=== PATIENT | male | born 1965 | race African-American/Black ===

== ENCOUNTER 2024-03-31 13:00 | Inpatient (IN) | payer OTHER ==
[2024-03-31 13:24] VITALS: BMI 20.9
[2024-03-31] MEDS ORDERED: NICOTINE POLACRILEX 2 MG GUM BUC PRN (14:02)
[2024-03-31] MEDS ORDERED: POLYETHYLENE GLYCOL (HEALTHYLAX) 3350 17 GM PACKET PO PRN (14:02)
[2024-03-31] MEDS ORDERED: MAG HYDROX/AL HYDROX/SIMETH 30 ML UNIT-DOSE CUP PO PRN (14:02)
[2024-03-31] MEDS ORDERED: IBUPROFEN 400 MG TABLET (FP) PO PRN (14:02)
[2024-03-31] MEDS ORDERED: IBUPROFEN 600 MG TABLET (FP) PO PRN (14:02)
[2024-03-31] MEDS ORDERED: BENZONATATE 200 MG CAPSULE PO PRN (14:02)
[2024-03-31] MEDS ORDERED: hydrOXYzine PAMOATE 25 MG CAPSULE (FP) PO PRN (14:02)
[2024-03-31] MEDS ORDERED: NALOXONE (NARCAN) HCL 4 MG/0.1 ML SPRAY NS PRN (14:02)
[2024-03-31] MEDS ORDERED: DICYCLOMINE HCL 10 MG CAPSULE PO PRN (14:02)
[2024-03-31] MEDS ORDERED: ONDANSETRON *ODT* 4 MG TABLET SL PRN (14:02)
[2024-03-31] MEDS ORDERED: MAGNESIUM HYDROX 2400MG/30ML ORAL SUSPENSION 30 ML CUP PO PRN (14:02)
[2024-03-31] MEDS ORDERED: BISMUTH SUBSALICYLATE 524 MG/30 ML PO PRN (14:02)
[2024-03-31] MEDS ORDERED: BENZOCAINE/MENTHOL (CHLORASEPTIC ) LOZENGE MM PRN (14:02)
[2024-03-31] MEDS ORDERED: LOPERAMIDE HCL 2 MG CAPSULE PO PRN (14:02)
[2024-03-31] MEDS ORDERED: ACETAMINOPHEN 325 MG TABLET (FP) PO PRN (14:02)
[2024-03-31] MEDS ORDERED: NALOXONE HCL 0.4 MG/ML VIAL IM PRN (14:02)
[2024-03-31] MEDS ORDERED: PRENATAL VITAMINS W/ FOLIC ACID TABLET (FP) PO ONE (15:04)
[2024-03-31] MEDS ORDERED: NICOTINE 14 MG/24 HOURS TOPICAL PATCH TD ONE (15:04)
[2024-03-31] MEDS: NICOTINE 14 MG/24 HOURS TOPICAL PATCH TD SCH (15:11)
[2024-03-31] MEDS: PRENATAL VITAMINS W/ FOLIC ACID TABLET (FP) PO SCH (15:11)
[2024-03-31] MEDS: ACAMPROSATE CALCIUM 333 MG TABLET.DR PO SCH (15:17)
[2024-03-31] MEDS ORDERED: ALBUTEROL SO4 HFA INHALER IH ONE (16:15)
[2024-03-31] MEDS: ALBUTEROL SO4 HFA INHALER IH PRN (16:16)
[2024-03-31] MEDS: diazePAM 5 MG TABLET PO SCH (16:37)
[2024-03-31] MEDS: THIAMINE 100 MG TABLET PO SCH (22:11)
[2024-03-31] MEDS: MELATONIN 5 MG TABLETS PO SCH (22:11)
[2024-04-01] MEDS ORDERED: INSULIN ASPART SLIDING SCALE (NOVOLOG) 1 VIAL SQ ONE ×2 (03:20→06:23)
[2024-04-01] MEDS ORDERED: ALBUTEROL SO4 HFA INHALER IH PRN (07:09)
[2024-04-01] MEDS: ATORVASTATIN CA 40 MG TABLET (FP) PO SCH (10:06)
[2024-04-01] MEDS: MONTELUKAST NA 10 MG TABLET PO SCH (10:06)
[2024-04-01] MEDS: LOSARTAN POTASSIUM 50 MG TABLET PO SCH (10:06)
[2024-04-01] MEDS: ASPIRIN COATED 81 MG TABLET.EC PO SCH (10:06)
[2024-04-01 11:55] LABS: HEMATOCRIT 41.1 % (35.4-49); MCH 31.8 pg (25.7-33.7); MCHC 34.1 g/dl (32.0-35.9); MEAN CELL VOLUME 93.4 fl (80-96); MEAN PLT VOLUME 10.2 fl (7.5-11.1); PLATELET COUNT 129 10^3/uL (134-434); RDW 14.8 % (11.9-15.9); WHITE BLOOD COUNT 5.8 K/mm3 (4.0-10.0)
[2024-04-01 12:12] LABS: POTASSIUM 3.3 mmol/L (3.5-5.1)
[2024-04-01 12:35] LABS: ALBUMIN 3.4 g/dl (3.4-5.0)
[2024-04-01 12:36] LABS: BLOOD UREA NITROGEN 7.9 mg/dL (7-18); TOT PROT 6.9 g/dl (6.4-8.2)
[2024-04-01 12:37] LABS: BILIRUBIN,TOTAL 0.9 mg/dL (0.2-1); CREATININE 0.9 mg/dL (0.55-1.3)
[2024-04-01] MEDS: ACAMPROSATE CALCIUM 333 MG TABLET.DR PO SCH (14:26)
[2024-04-01] MEDS ORDERED: POTASSIUM CHLORIDE ORAL LIQUID 20 MEQ/15 ML PO ONE (15:45)
[2024-04-01] MEDS: POTASSIUM CHLORIDE ORAL LIQUID 20 MEQ/15 ML PO ONE (17:11)
[2024-04-01] MEDS: METHOCARBAMOL 500 MG TABLET PO PRN (22:20)
[2024-04-01] MEDS: guaiFENesin 600 MG TABLET.ER (FP) PO PRN (22:20)
[2024-04-02] MEDS: diazePAM 5 MG TABLET PO SCH (06:01)
[2024-04-02] MEDS: diazePAM 5 MG TABLET PO PRN (10:08)
[2024-04-02] MEDS ORDERED: guaiFENesin/D-METHORPHAN HB 10 ML UNIT-DOSE CUPS PO PRN (14:48)
[2024-04-03] MEDS: diazePAM 5 MG TABLET PO SCH (05:55)
[2024-04-03 06:33] VITALS: RESP 16
[2024-04-03 09:47] VITALS: BP 106/65; PULSE 79; TEMP 97.6
[2024-04-03] MEDS ORDERED: ACAMPROSATE CALCIUM 333 MG TABLET.DR PO SCH (11:37)
[2024-04-04] MEDS ORDERED: diazePAM 5 MG TABLET PO ONE (06:00)
== END 2024-04-03 10:51 | disposition home or self-care (01) | DRG 775 ==
LOC: YASAS 13:00 → Y3N 15:07
PROVIDERS: ADMIT Allergy & Immunology; ATTEND Surgery
PROC: HZ2ZZZZ Detoxification Services for Substance Abuse Treatment (ICD-10-PCS; principal; 2024-03-31)
DX: F10.230 Alcohol dependence with withdrawal, uncomplicated (principal); F17.210 Nicotine dependence, cigarettes, uncomplicated; F20.9 Schizophrenia, unspecified; I10 Essential (primary) hypertension; E11.9 Type 2 diabetes mellitus without complications; E78.5 Hyperlipidemia, unspecified; I25.10 Atherosclerotic heart disease of native coronary artery without angina pectoris; J45.909 Unspecified asthma, uncomplicated; I25.2 Old myocardial infarction; Z56.0 Unemployment, unspecified
CPT/HCPCS: 36415; 80053; 80305; 80307; 82140; 82947; 82962; 83036; 85027; 86780; 93005; 93010